=== PATIENT | male | born 1965 | race Caucasian/White ===

== ENCOUNTER 2018-12-04 08:58 | Outpatient (CLI) | payer MEDICAID, SELFPAY ==
[2018-12-04 11:54] LABS: Cholesterol 207 mg/dL (50-200); Glucose 106 mg/dL (70-100); HDL Cholesterol 32 mg/dL (40-60); LDL CHOLESTEROL 137 mg/dL (<100); Triglyceride 132 mg/dL (30-150)
== END 2018-12-04 09:18 ==
PROVIDERS: PCP Family Medicine; Visit Provider Family Medicine
DX: E74.39 Other disorders of intestinal carbohydrate absorption (principal)
CPT/HCPCS: 36415; 80061; 82947; 83721

== ENCOUNTER 2021-07-12 03:02 | Outpatient (CLI) | payer MEDICAID, SELFPAY ==
[2021-07-12 13:57] LABS: CREATININE 1.3 mg/dL (0.70-1.30); Calculated LDL 128 mg/dL (<100); Cholesterol 219 mg/dL (<200); HDL Cholesterol 33 mg/dL (40-60); Potassium 4.4 mmol/L (3.5-5.1); Triglyceride 292 mg/dL (<150)
== END 2021-07-12 03:03 | disposition home or self-care (01) ==
LOC: LBO 03:03
PROVIDERS: PCP Family Medicine; Visit Provider Family Medicine
DX: I10 Essential (primary) hypertension (principal); Z12.5 Encounter for screening for malignant neoplasm of prostate; E78.5 Hyperlipidemia, unspecified
CPT/HCPCS: 36415; 80061; 84153; 82565; 84132

== ENCOUNTER → 2022-03-21 02:09 | Outpatient (CLI) | payer MEDICAID, SELFPAY ==
--- NOTE | 2022-03-21 06:45 | DI.RAD_ITS ---
Exam(s) XR CHEST 2V PA LATERAL EXAM: XR CHEST 2V PA LATERAL CLINICAL HISTORY: sob/previous asbestos exposure,CHRONIC COUGH, R05.3 TECHNIQUE: 2D digital imaging was performed of the chest. Two images were obtained. PA and lateral views were obtained. COMPARISON: No exams were available for comparison FINDINGS: MEDIASTINUM: Normal. HEART: Normal. PULMONARY VASCULATURE: Normal. LUNGS: Clear. PLEURAL SPACE: No pleural effusion or pneumothorax. BONE:Within normal limits for the patient's age. OTHER FINDINGS:Normal. IMPRESSION: No acute pulmonary findings. DATA REPOSITORY: RADIATION DOSE DELIVERED:
== END ==
PROVIDERS: PCP Family Medicine; Visit Provider Family Medicine
DX: R05.3 Chronic cough (principal)
CPT/HCPCS: 71046

== ENCOUNTER 2022-11-14 10:04 | Emergency (ER) | payer MEDICAID, SELFPAY ==
[2022-11-14 10:10] VITALS: BP 157/100; PULSE 85; RESP 18; O2SAT 96
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
[2022-11-14] MEDS: Ibuprofen 600 MG TAB PO (10:35)
[2022-11-14 12:10] VITALS: BP 150/94; PULSE 77; RESP 18; O2SAT 95
== END 2022-11-14 12:12 | disposition home or self-care (01) ==
PROVIDERS: Emergency Provider Registered Nurse Emergency; PCP Family Medicine
DX: S63.92XA Sprain of unspecified part of left wrist and hand, initial encounter (principal); V89.2XXA Person injured in unspecified motor-vehicle accident, traffic, initial encounter
CPT/HCPCS: 29130; 99284; 73090; 73130; 99283

== ENCOUNTER 2022-11-19 13:34 | Outpatient (CLI) | payer MEDICAID, SELFPAY ==
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
== END 2022-11-19 13:54 ==
LOC: DI 13:36
PROVIDERS: PCP Family Medicine; Visit Provider Nurse Practitioner Family
DX: M25.552 Pain in left hip (principal); S19.9XXA Unspecified injury of neck, initial encounter; S39.92XA Unspecified injury of lower back, initial encounter
CPT/HCPCS: 72050; 72072; 72110; 73502

== ENCOUNTER 2022-11-29 01:30 | Outpatient (CLI) | payer MEDICAID, SELFPAY ==
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
== END 2022-11-29 01:50 ==
LOC: DI 01:31
PROVIDERS: PCP Family Medicine; Visit Provider Nurse Practitioner Family
DX: M47.14 Other spondylosis with myelopathy, thoracic region (principal); M51.14 Intervertebral disc disorders with radiculopathy, thoracic region; V89.2XXD Person injured in unspecified motor-vehicle accident, traffic, subsequent encounter
CPT/HCPCS: 72141; 72146; 72148

== ENCOUNTER 2023-04-22 12:57 | Outpatient (CLI) | payer MEDICAID, SELFPAY ==
[2023-04-22 08:53] LABS: Hemoglobin A1C 6.2 % (<5.7)
[2023-04-22 09:22] LABS: Anion Gap 9.6 mmol/L (3-11); BUN 12 mg/dL (7-18); CO2 28.4 mmol/L (21.0-32.0); CREATININE 1.2 mg/dL (0.70-1.30); Calcium 9.2 mg/dL (8.5-10.1); Chloride 102 mmol/L (98-107); Estimated GFR 70.53 (mL/min/1.73m2); Glucose 122 mg/dL (74-106); Potassium 3.8 mmol/L (3.5-5.1); Sodium 140 mmol/L (136-145)
== END 2023-04-22 12:58 | disposition home or self-care (01) ==
LOC: LBO 12:57
PROVIDERS: PCP Family Medicine; Visit Provider Nurse Practitioner Family
DX: I10 Essential (primary) hypertension (principal); R73.03 Prediabetes
CPT/HCPCS: 36415; 80048; 83036

== ENCOUNTER 2023-05-02 00:59 | Outpatient (CLI) | payer MEDICAID, SELFPAY ==
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
== END 2023-05-02 01:19 ==
LOC: DI 00:59
PROVIDERS: PCP Family Medicine; Visit Provider Nurse Practitioner Family
DX: N62 Hypertrophy of breast
CPT/HCPCS: 76642; 77062; 77066; G0279

== ENCOUNTER 2025-01-11 12:41 | Day surgery (SDC) | payer MEDICAID, SELFPAY ==
[2025-01-11 12:50] VITALS: BP 196/111; PULSE 79; RESP 20; TEMP 36.6; O2SAT 97
[2025-01-11 13:22] VITALS: BP 168/107
--- NOTE | 2025-01-11 14:58 | W.PM.DSUDISC ---
Date of service: 01/11/25 Discharge Plan Disposition Patient Disposition: Home Condition: Good Discharge Details Reason For Visit: Right dupuytren's contracture Attending Provider: Levy Escamilla Primary Care Provider: Pasquale Talbot Home Meds and New Rx's Prescriptions: New hydrocodone-acetaminophen 5-325 mg tablet 1 tab PO Q6H PRN (Reason: severe pain) Qty: 4 0RF Rx Instructions: Take one tablet up to every 6 hours as needed for severe postoperative pain Continued metformin 500 mg tablet 500 mg PO BID Qty: 60 2RF Patient Comments: denies DM amlodipine 5 mg tablet 5 mg PO DAILY Qty: 90 3RF ibuprofen 800 mg tablet 800 mg PO Q8H PRN (Reason: pain) Qty: 60 2RF naproxen 500 mg tablet 500 mg PO BID PRN (Reason: pain) Qty: 60 2RF Rx Instructions: Do not take if using ibuprofen lansoprazole 15 mg capsule,delayed release(DR/EC) 15 mg PO DAILY Qty: 90 3RF losartan 50 mg tablet 50 mg PO DAILY Qty: 90 3RF Patient Comments: pt said he hasnt taken since July cyclobenzaprine 10 mg tablet 10 mg PO HS PRN (Reason: headache) Qty: 30 0RF Discharge Instructions Additional Instructions: Dupuytren's Contracture Discharge Instructions Activity: You may use your fingers for light activity. You should limit any excessive motion or forceful gripping until the sutures have been removed. Dressings: You should keep the initial surgical dressing in place for at least 3 days. You may remove your dressings and get the wound wet after 3 days. You should keep the dressings and the wound clean at all times. You may keep the initial dressing in place until your follow-up but keep the wound covered with light gauze until the sutures are removed. Medications: - You should take Tylenol and Ibuprofen around the clock as prescribed or per spiral weaver's recommendations. - You have Hydrocodone prescribed for breakthrough pain control. Take only as needed and limit use as much as possible. This may cause constipation. Follow-up: 7-10 days for wound check and suture removal. Referrals: Levy Escamilla MD [ [facility], Orthopaedic Surgical] Equipment/Supplies: Splint Activity:: Elevate Remove Dressings/Wound Care:: 72 hours Shower/Bathe:: 72 hours and Cover Diet:: As Tolerated Discharge Orders Discharge Orders: Discharge Order (Routine); Ordered 01/11/25 Ordered By: Seda Ca
[2025-01-11] MEDS: Lidocaine 1% Multi-Dose W/EPI 1/100,000 50 ML VIAL (15:24)
[2025-01-11] MEDS: Sodium Bicarbonate 50 MEQ/50 ML VIAL (15:24)
[2025-01-11 15:52] VITALS: BP 179/97; PULSE 78; RESP 20; TEMP 36.5; O2SAT 97
--- NOTE | 2025-01-11 16:50 | W.PM.OP ---
Operative Note Operative Note PRE-OP DIAGNOSIS: Dupuytren's disease -right hand POST-OP DIAGNOSIS: same PROCEDURE: Partial palmar fasciectomy, right hand SURGEON: Levy Escamilla ANESTHESIA TYPE: Local By Surgeon Refer to Anesthesia Record ESTIMATED BLOOD LOSS: 0 PATHOLOGY: none sent COMPLICATIONS: None Patient was transported to: same day Patient's condition: stable Indications: I have seen Lazaro in clinic for symptoms of a trigger finger. The catching, clicking, locking, and pain limited function. The diagnosis of trigger finger was evident. The symptoms had not responded to conservative measures. I discussed trigger finger release with the patient. I reviewed the risks of the procedure to include, but not limited to, bleeding, infection, pain, stiffness, incomplete release, damage to nerves or vessels, continued catching, recurrence. Despite these risks, the patient elected to proceed. Findings: There was a large central cord going to the ring finger which was removed in whole. There were some attachments and a knuckle pad which was also resected. Through the incision I was able to also release cutaneous adhesions to a subtle central cord to the middle finger and transect some early fascial bands in this region. Procedure Description: Lazaro was greeted in the preoperative holding area where the correct side was identified and marked. The consent was reviewed with the patient and signed. All questions were answered. He was taken back to the operating room. The patient was placed into the supine position on the operating room table with the right arm on an arm board. All bony prominences were well padded. No prophylactic antibiotics were administered since this was a clean, elective hand surgical case. The right arm was then prepped with Chloraprep and draped in a standard fashion with stockinette and extremity drape. A timeout to confirm correct identity, side and site, procedure, allergies, anesthesia, and medical concerns was performed. The surgical site was marked as a transverse incision through the proximal transverse flexion crease of the palm and then extending an oblique angle across the distal palmar flexion crease and to the ulnar border of the ring finger MCP flexion crease. This area was then anesthetized with 1% lidocaine with epinephrine, buffered with sodium bicarbonate. He tolerated the injection process well and once the anesthetic was confirmed, the surgery began. Sharply incised the skin along the proposed incision site. Once into the subcutaneous fat and tissue blunt dissect was utilized to free adhesions. A knife was utilized to elevate skin and soft tissue's over the central cord of the ring finger elevating the triangular flap and ulnar direction. This had excellent exposure of the large central cord to the ring finger. This was elevated proximally distally. Once full exposure the cord was visible I used a knife to transect the central cord proximally and then elevated out of the wound to the level of the base of the proximal phalange the ring finger. I then separately removed a knuckle pad type prominence sharply from the overlying palmar skin. There were a few adhesions of this area which were released. There was a contribution almost like an auditory cord to the skin towards the middle finger although not truly contributing as a complete cord. This was transected. Attention was then turned to the radial aspect of this wound. There was a cutaneous contracture in line with the middle finger. This was transected. A small central cord was identified in this region which was also transected. At this point, both middle finger ring finger had complete extension without any signs of contracture. The wound was then thoroughly irrigated and the skin was closed with a 4-0 Nylon. This was dressed with gauze and a Kerlix gauze dressing. The patient tolerated the procedure well and was returned to the [facility] Surgery area in a stable condition suffering no known complication. Date of Procedure: 01/11/25
== END 2025-01-11 16:17 | disposition home or self-care (01) ==
PROVIDERS: PCP Family Medicine; Visit Provider Student in an Organized Health Care Education/Training Program
PROC: (CPT 26045; principal; 2025-01-11 15:15)
DX: M72.0 Palmar fascial fibromatosis [Dupuytren] (principal)
CPT/HCPCS: 26123; J2004